=== PATIENT | female | born 1985 ===

== ENCOUNTER 2024-09-27 14:01 | Emergency (ER) | payer MEDICAID, SELFPAY ==
[2024-09-27 14:23] VITALS: BP 132/87; PULSE 98; RESP 16; TEMP 36.2; O2SAT 98
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
[2024-09-27] MEDS: ALPRAZolam 0.5 MG TAB PO (16:10)
[2024-09-27 16:40] LABS: Abs Immature Grans 0.04 10^3/uL (0.0-0.06); Absolute Basophil Count 0.06 10^3/uL (0.0-0.2); Absolute Eosinophil Count 0.09 10^3/uL (0.0-0.7); Absolute Lymphocyte Count 2.19 10^3/uL (1.2-3.4); Absolute Monocyte Count 0.75 10^3/uL (0.1-0.8); Absolute Neutrophil Count 6.88 10^3/uL (1.2-6.7); Basophils % 0.6 %; Eosinophils % 0.9 %; HGB 13.8 g/dL (11.2-15.7); Immature Grans % 0.4 %; Lymphocytes % 21.9 %; MCH 28.9 pg (27.0-33.0); MCHC 33.7 % (32.0-36.0); MCV 86 fL (80-95); Monocytes % 7.5 %; Neutrophils % 68.7 %; Platelet Count 245 10^3/uL (130-400); RBC 4.78 10^6/uL (3.93-5.22); RDW 13.2 % (11.7-14.6); RDW-SD 41.3 fL; WBC 10.01 10^3/uL (4.4-10.8)
[2024-09-27 17:06] LABS: *AMPHETAMINES SCREEN URINE Negative (Negative); *BARBITURATES SCREEN URINE Negative (Negative); *BENZODIAZEPINES SCREEN URINE Positive (Negative); Cannabinoids THC Negative (Negative); Cocaine Screen,Urine Negative (Negative); METHADONE URINE SCREEN Negative (Negative); OPIATES URINE SCREEN Negative (Negative)
[2024-09-27 17:07] LABS: Tricyclic Antidepressants Negative (Negative)
[2024-09-27 17:07] LABS: ALT 16 U/L (14-59); AST 14 U/L (15-37); Albumin 4.5 g/dL (3.4-5.0); Alkaline Phosphatase 64 U/L (46-116); Anion Gap 12.2 mmol/L (3-11); BUN 21 mg/dL (7-18); Bilirubin, Total 0.45 mg/dL (0.2-1.0); CO2 24.8 mmol/L (21.0-32.0); Calcium 9.6 mg/dL (8.5-10.1); Chloride 107 mmol/L (98-107); Estimated GFR 74.41 (mL/min/1.73m2); Glucose 86 mg/dL (74-106); Potassium 3.9 mmol/L (3.5-5.1); Sodium 144 mmol/L (136-145); Total Protein 7.9 g/dL (6.4-8.2)
[2024-09-27 17:08] LABS: ETHANOL BLOOD < 3.0 mg/dL (<10)
[2024-09-27 17:11] LABS: Salicylate < 2.8 mg/dL (<2.8)
[2024-09-27 17:14] LABS: Acetaminophen < 2 ug/mL (10-30)
[2024-09-27 17:34] LABS: HCG Quant, Pregnancy < 1 mIU/mL (1-3)
--- NOTE | 2024-09-27 18:00 | CMSP_ITS ---
Date of service: 09/27/24 Time of Service: 18:01 Care Management Safety Plan Status Status: Interim Reason for Wait Reason for Wait: Assessment/Screening Safety Plan Safety Plan: VOLUNTARY FOR INPATIENT PSYCHIATRIC STABILIZATION.? Patient is appropriate in all interactions since arriving at [facility]; Pt has demonstrated appropriate coping and communication skills, has articulated his or her needs and concerns and is fully engaged during staff interactions. Safety plan has been established with patient, and care team, to adhere to patient goals, identify restrictions based on behavioral status, address nutrition, and determine allowed personal belongings, tools for hygiene and personal care. Determine level of activity including ambulation, level of supervision, visitors, and determine privileges based on behaviors and level of engagement by pt. VOLUNTARY SAFETY PLAN: 1. Will remain on suicide precautions, in paper clothes 2. Will remain in Zone B under direct supervision of one-on-one staff at all times provided by [employer]; YASH, WOOD HANDLER rougher operator. 3. May have paper cups, plates, finger foods as well as a cardboard spoon with which to eat meals. 4. Follow [facility] Management of the Admitted Behavioral Health Patient policy. 5. Shower available in Zone B without restriction. 6. Personal belongings-soft items permitted at RN discretion. 7. Visitors- at RN discretion. 8. Activities: soft cart items approved per RN discretion. 9.? Bathroom available in Zone B without restriction. 10. Phone: limited to [facility] cordless phone at RN discretion. Due to VOLUNTARY status, if patient wishes to leave [facility], staff will contact [facility] Crisis Screener ([phone]) and Nuclear Medicine Tech ([phone]) as soon as possible. In the event of elopement, notify [facility] Police ([phone]). Patient is currently voluntarily at [facility] and seeking inpatient admission when a bed becomes available. [facility] Frontline Sap Functional Analyst will continue seeking pl acement. Please contact the Nuclear Medicine Tech ([phone]) and [facility] Sap Functional Analyst ([phone]) for any needed changes in the Safety Plan. Safety plan has been provided to interdepartmental care team.
--- NOTE | 2024-09-27 18:00 | PDOC.CMSAFE ---
Date of service: 09/27/24 Time of Service: 18:01 Care Management Safety Plan Status Status: Interim Reason for Wait Reason for Wait: Assessment/Screening Safety Plan Safety Plan: VOLUNTARY FOR INPATIENT PSYCHIATRIC STABILIZATION.? Patient is appropriate in all interactions since arriving at [facility]; Pt has demonstrated appropriate coping and communication skills, has articulated his or her needs and concerns and is fully engaged during staff interactions. Safety plan has been established with patient, and care team, to adhere to patient goals, identify restrictions based on behavioral status, address nutrition, and determine allowed personal belongings, tools for hygiene and personal care. Determine level of activity including ambulation, level of supervision, visitors, and determine privileges based on behaviors and level of engagement by pt. VOLUNTARY SAFETY PLAN: 1. Will remain on suicide precautions, in paper clothes 2. Will remain in Zone B under direct supervision of one-on-one staff at all times provided by [employer]; YASH, [employer] manager behavioral. 3. May have paper cups, plates, finger foods as well as a cardboard spoon with which to eat meals. 4. Follow [facility] Management of the Admitted Behavioral Health Patient policy. 5. Shower available in Zone B without restriction. 6. Personal belongings-soft items permitted at RN discretion. 7. Visitors- at RN discretion. 8. Activities: soft cart items approved per RN discretion. 9.? Bathroom available in Zone B without restriction. 10. Phone: limited to [facility] cordless phone at RN discretion. Due to VOLUNTARY status, if patient wishes to leave [facility], staff will contact [facility] Crisis Screener ([phone]) and Scrap Preparation Supervisor ([phone]) as soon as possible. In the event of elopement, notify [facility] Police ([phone]). Patient is currently voluntarily at [facility] and seeking inpatient admission when a bed becomes available. [facility] Frontline Housekeeper [facility] will continue seeking placement. Please contact the Scrap Preparation Supervisor ([phone]) and [facility] House[facility] ([phone]) for any needed changes in the Safety Plan. Safety plan has been provided to interdepartmental care team.
[2024-09-27] MEDS: QUEtiapine 300 MG TAB PO (22:07)
--- NOTE | 2024-09-28 08:14 | ED.PROG_ITS ---
Date of service: 09/28/24 Time of Service: 08:14 Medical Decision Making Care assumed from outgoing provider. Patient is a 39-year-old female with depression and suicidal ideation ideation currently pending inpatient voluntary psychiatric placement. She had a plan to cut herself and use pills. Final disposition pending reevaluation with [facility] this morning for either safety plan versus placement. Patient has been evaluated by [facility] and a safety plan has been written. She will be discharged home. Return precautions advised. Quality:[facility] Health Related Social Needs: No Data to Display Discharge Plan Disposition Patient Disposition: Home Discharge Details Clinical Impression: Suicidal ideation Primary Care Provider: None,None ED Provider: Pema De Anda Home Meds and New Rx's Prescriptions: No Action alprazolam 0.5 mg tablet 0.5 mg PO BID PRN Rx Instructions: Maximum dose = 2 tablets quetiapine [Seroquel] 300 mg tablet 300 mg PO DAILY PRN Rx Instructions: PRN at night dexmethylphenidate [Focalin] 5 mg tablet 5 mg PO DAILY Rx Instructions: Unknown dose Discharge Instructions Additional Instructions: You have agreed to a safety plan with [facility] and will be discharged. Please return with any worsening symptoms or concerns. Please follow-up with your outpatient team and continue to take your medication.
[2024-09-28] MEDS: Nicotine 2 MG GUM CH (09:44)
[2024-09-28] MEDS: ALPRAZolam 0.5 MG TAB PO (09:48)
[2024-09-28 13:01] VITALS: BP 109/73; PULSE 82; RESP 16; TEMP 36.7; O2SAT 98
[2024-09-28 13:22] VITALS: BP 109/73; PULSE 82; RESP 16; TEMP 36.7; O2SAT 98
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
== END 2024-09-28 13:14 | disposition home or self-care (01) ==
PROVIDERS: Student in an Organized Health Care Education/Training Program; Emergency Provider Emergency Medicine
DX: R45.851 Suicidal ideations (principal); F43.11 Post-traumatic stress disorder, acute
CPT/HCPCS: 00123; 80053; 80307; 81025; 96127; 99284; 80320; 80329; 84702; 85025